=== PATIENT | male | born 1955 | race Caucasian/White ===

== ENCOUNTER 2025-05-03 19:23 | Emergency (ER) | payer MEDICARE, OTHER ==
[~2025-05-03] VITALS: Ht 172.7 cm; Wt 111.1 kg
[2025-05-03 19:29] VITALS: BP 144/79
[2025-05-03] MEDS ORDERED: ALBU18HF2 INH (19:50)
[2025-05-03 19:55] VITALS: BP 144/79; O2SAT 97
== END 2025-05-03 19:55 | disposition home or self-care (01) ==
LOC: ER 19:30
DX: R06.2 Wheezing (principal); I50.9 Heart failure, unspecified; F41.9 Anxiety disorder, unspecified; F32.A Depression, unspecified; Z88.0 Allergy status to penicillin
CPT/HCPCS: A4606; A4663